=== PATIENT | female | born 1945 | race Asian ===

== ENCOUNTER → 2017-05-04 | Day surgery (SDC) | payer OTHER ==
--- NOTE | 2017-05-07 15:35 | PATH ---
Cytology Non-Gynecological Report Patient Name: AKILAH EASON [facility]. Rec. #: [id number] /Age/Gender: 1945 (Age: 71) / F Account: [id number] Location: RADIOLOGY Taken: 05/04/2017 Received: 05/04/2017 Reported: 05/07/2017 Physicians: Caryl Donis M.D. Specimen(s) Received RIGHT THYROID FNA Clinical History Right thyroid nodule, 2.33 x 1.95 x 2.0 cm Final Diagnosis THYROID, RIGHT, FINE NEEDLE ASPIRATION: SATISFACTORY FOR EVALUATION. BETHESDA CLASS II: BENIGN. CYTOLOGIC FINDINGS SHOW A BENIGN FOLLICULAR NODULE WITH CYSTIC CHANGE AND FEATURES OF POSSIBLE LYMPHOCYTIC THYROIDITIS. SMALL FOLLICULAR CELLS WITH FOCAL REACTIVE CHANGES DISPERSED FRAGMENTS, SHEETS, AND AGGREGATES IN A BACKGROUND OF NUMEROUS MACROPHAGES, RARE MULTINUCLEATED GIANT CELLS, SCATTERED LYMPHOCYTES, AND FEW LYMPHOID TANGLES. Comment: Suggest clinical/radiologic and serologic correlation. Electronically Signed Nadja Torres M.D. Gross Description Received are eight direct smears, four of which are air-dried and Diff-Quik stained, and four of which are alcohol fixed and Pap stained. Also received is 20 ml of bloody formalin from which one cellblock is prepared.
== END | disposition home or self-care (01) ==
LOC: JRADIR 08:35
PROVIDERS: ATTEND Surgery
PROC: 0G9H3ZX Drainage of Right Thyroid Gland Lobe, Percutaneous Approach, Diagnostic (ICD-10-PCS; principal; 2017-05-04)
DX: E04.1 Nontoxic single thyroid nodule (principal)
CPT/HCPCS: 76942; 88173; 88305-TC

== ENCOUNTER → 2017-05-11 | Day surgery (SDC) | payer OTHER ==
--- NOTE | 2017-05-14 11:54 | PATH ---
Cytology Non-Gynecological Report Patient Name: AKILAH EASON [facility]. Rec. #: [id number] /Age/Gender: 1945 (Age: 71) / F Account: [id number] Location: RADIOLOGY Taken: 05/11/2017 Received: 05/11/2017 Reported: 05/14/2017 Physicians: Caryl Donis M.D. Specimen(s) Received LEFT THYROID FNA Clinical History Left thyroid nodule, 1.65 x 1.08 x 0.91 cm Final Diagnosis THYROID, LEFT, FINE NEEDLE ASPIRATION: SATISFACTORY FOR EVALUATION. BETHESDA CLASS II: BENIGN. CYTOLOGIC FINDINGS ARE CONSISTENT WITH A BENIGN FOLLICULAR NODULE WITH CYSTIC CHANGE. SMALL FOLLICULAR CELLS IN A BACKGROUND OF MACROPHAGES AND THIN COLLOID PRESENT. Comment: Prior material is noted Electronically Signed Nadja Torres M.D. Gross Description Received are eight direct smears, four of which are air-dried and Diff-Quik stained, and four of which are alcohol fixed and Pap stained. Also received is 20 ml of bloody formalin from which one cellblock is prepared.
== END | disposition home or self-care (01) ==
LOC: JRADIR 09:06
PROVIDERS: ATTEND Surgery
PROC: 0G9G3ZX Drainage of Left Thyroid Gland Lobe, Percutaneous Approach, Diagnostic (ICD-10-PCS; principal; 2017-05-11)
DX: E04.1 Nontoxic single thyroid nodule (principal)
CPT/HCPCS: 76942; 88173; 88305-TC